=== PATIENT | female | born 1985 | race Two or more races ===

== ENCOUNTER 2019-10-17 13:15 | Inpatient (IN) | payer OTHER ==
[~2019-10-17] VITALS: Ht 165.1 cm; Wt 70.3 kg
[2019-11-16] MEDS ORDERED: PRENATAL TABLE1 EAC3 PO (23:10)
== END 2019-11-18 15:35 | disposition home or self-care (01) | DRG 807 ==
LOC: OB/GYN 11-14 13:15 → LDR 11-16 17:01 → OB/GYN 11-16 20:13
PROVIDERS: ADMIT Obstetrics & Gynecology; ATTEND Obstetrics & Gynecology
PROC: 10E0XZZ Delivery of Products of Conception, External Approach (ICD-10-PCS; principal; 2019-11-16)
PROC: 4A0HXFZ Measurement of Products of Conception, Cardiac Rhythm, External Approach (ICD-10-PCS; 2019-11-16)
DX: O80 Encounter for full-term uncomplicated delivery (principal); Z37.0 Single live birth; Z3A.40 40 weeks gestation of pregnancy